=== PATIENT | male | born 1990 | race Hispanic/Latino ===

== ENCOUNTER 2019-12-18 17:56 | Emergency (ER) | payer SELFPAY ==
[2019-12-18 19:15] LABS: Basophils % (Auto) 0.8 % (0.0-1.8); Eosinophils # (Auto) 0.1 K/mm3 (0.0-0.4); Hematocrit 41.6 % (35.5-45.6); Hemoglobin 14.7 gm/dl (11.8-15.2); Lymphocytes # (Auto) 0.8 K/mm3 (1.2-5.4); Lymphocytes % (Auto) 13.8 % (13.4-35.0); Mean Corpuscular HGB Conc 35 % (32-34); Mean Corpuscular Volume 87 fl (84-94); Monocytes # (Auto) 0.4 K/mm3 (0.0-0.8); Monocytes % (Auto) 6.6 % (0.0-7.3); Platelet Count 243 K/mm3 (140-440); Red Blood Count 4.78 M/mm3 (3.65-5.03); Red Cell Distribution Width 12.9 % (13.2-15.2)
[2019-12-18 19:43] LABS: Bilirubin,Urine NEG (Negative); Blood,Urine NEG (Negative); Color,Urine Yellow (Yellow); Mucus,Urine 3+ /HPF; Urobilinogen,Urine < 2.0 mg/dL (<2.0)
[2019-12-18 19:45] LABS: Blood Urea Nitrogen 14 mg/dL (9-20); Calcium 9.6 mg/dL (8.4-10.2); Hemolysis Index 2
[2019-12-18 19:46] LABS: Amphetamine Screen,Urine Negative; Benzodiazepines Screen,Urine Negative; Cannabinoid Screen,Urine Negative; Cocaine Screen,Urine Negative; Methadone Screen,Urine Negative; Opiate Screen,Urine Negative
[2019-12-18 20:02] LABS: BUN/Creatinine Ratio 20
--- NOTE | 2019-12-19 00:04 | Emergency Department Report ---
HPI - HPI HPI: Room 14 The patient is a 29-year-old male present with a chief complaint of depression. The patient arrived to the [facility] for his first day and reportedly was telling staff that he wanted to run away and go to senior care. The patient was placed on a [address] lamb the documents "ran away twice threatening to go to senior care." The patient was sent to [facility] and sent here for medical clearance. Patient denies suicidal or homicidal ideation. Patient denies auditory or visual hallucinations. 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 Other details as noted in HPI Constitutional: no symptoms reported Respiratory: no symptoms reported Endocrine: no symptoms reported <CONSTANTINO ALONZO - Last Filed: 12/19/19 00:00> ROS: Stated complaint: MEDICAL CLEARANCE-ANCHOR Other details as noted in HPI <TOMAS HOUGH - Last Filed: 12/19/19 13:25> Physical Exam - Physical Exam Vital Signs: Vital Signs 12/18/19 18:22 Temperature 98.0 F Pulse Rate 96 H Respiratory 18 Rate Blood Pressure 110/47 O2 Sat by Pulse 95 Oximetry Physical Exam: GENERAL: The patient is well-developed well-nourished male sitting in chair not appearing to be in acute distress. [] HEENT: Normocephalic. Atraumatic. Extraocular motions are intact. Patient has moist mucous membranes. NECK: Supple. Trachea midline CHEST/LUNGS: Clear to auscultation. There is no respiratory distress noted. HEART/CARDIOVASCULAR: Regular. There is no tachycardia. There is no gallop rub or murmur. ABDOMEN: Abdomen is soft, nontender. Patient has normal bowel sounds. There is no abdominal distention. SKIN: There is no rash. There is no edema. There is no diaphoresis. NEURO: The patient is awake, alert, and oriented. The patient is cooperative. The patient has normal speech MUSCULOSKELETAL: There is no evidence of acute injury. <CONSTANTINO ALONZO - Last Filed: 12/19/19 00:00> - Physical Exam Vital Signs: Vital Signs 12/18/19 12/19/19 18:22 07:58 Temperature 98.0 F Pulse Rate 96 H Respiratory 18 16 Rate Blood Pressure 110/47 O2 Sat by Pulse 95 Oximetry <TOMAS HOUGH - Last Filed: 12/19/19 13:25> ED Course Vital Signs 12/18/19 18:22 Temperature 98.0 F Pulse Rate 96 H Respiratory 18 Rate Blood Pressure 110/47 O2 Sat by Pulse 95 Oximetry <CONSTANTINO ALONZO - Last Filed: 12/19/19 00:00> Vital Signs 12/18/19 12/19/19 18:22 07:58 Temperature 98.0 F Pulse Rate 96 H Respiratory 18 16 Rate Blood Pressure 110/47 O2 Sat by Pulse 95 Oximetry <TOMAS HOUGH - Last Filed: 12/19/19 13:25> ED Medical Decision Making - Lab Data Result diagrams: 12/18/19 18:39 12/18/19 18:39 - Differential Diagnosis Depression, adjustment disorder <CONSTANTINO ALONZO - Last Filed: 12/19/19 00:00> - Lab Data Result diagrams: 12/18/19 18:39 12/18/19 18:39 - Medical Decision Making Mental health consultation has been completed by psychiatric team. Patient does not meet inpatient criteria. Patient will return to assisted. He is currently residing at the [facility]. <TOMAS HOUGH - Last Filed: 12/19/19 13:25> Critical care attestation.: If time is entered above; I have spent that time in minutes in the direct care of this critically ill patient, excluding procedure time. <CONSTANTINO ALONZO - Last Filed: 12/19/19 00:00> Critical care attestation.: If time is entered above; I have spent that time in minutes in the direct care of this critically ill patient, excluding procedure time. <TOMAS HOUGH - Last Filed: 12/19/19 13:25> ED Disposition <CONSTANTINO ALONZO - Last Filed: 12/19/19 00:00> Is pt being admited?: No Does the pt Need Aspirin: No <TOMAS HOUGH - Last Filed: 12/19/19 13:25> Clinical Impression: Depression Disposition: TO HOME OR SELFCARE Condition: Stable Referrals: PRIMARY CARE,MD [Primary Care Provider] - 3-5 Days
[2019-12-19] MEDS ORDERED: ALPRAZolam 0.5 MG TAB PO ONE (07:42)
[2019-12-19] MEDS ORDERED: ALPRAZolam 0.5 MG TAB ONE (07:45)
[2019-12-19 13:48] VITALS: BP 115/68
== END 2019-12-19 14:48 | disposition home or self-care (01) ==
LOC: ED 17:56
DX: F32.89 Other specified depressive episodes (principal); Z79.899 Other long term (current) drug therapy
CPT/HCPCS: 36415; 80048; 80307; 80320; 81001; 85025; G0480